=== PATIENT | female | born 2000 | race Caucasian/White ===

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

== ENCOUNTER 2024-02-16 08:27 | Emergency (ER) | payer BC, MEDICAID, OTHER ==
[2024-02-16] MEDS: Acetaminophen 500 MG Tab PO ONE (09:00)
[2024-02-16] MEDS: traMADol 50 MG Tab PO STA (09:00)
[2024-02-16] MEDS: Ibuprofen 800 MG Tab PO STA (09:00)
[2024-02-16 09:10] LABS: APPEARANCE,URINE SLT CLOUDY; BILIRUBIN,URINE NEGATIVE (NEGATIVE); COLOR,URINE YELLOW; GLUCOSE,URINE NEGATIVE (NEGATIVE); KETONES,URINE NEGATIVE (NEGATIVE); LEUKOCYTE ESTERASE,URINE LARGE (NEGATIVE); NITRITE,URINE NEGATIVE (NEGATIVE); OCCULT BLOOD,URINE LARGE (NEGATIVE); PROTEIN,URINE NEGATIVE (NEGATIVE); UROBILINOGEN,URINE 0.2 EU/dL (<2.0)
[2024-02-16 09:32] LABS: BACTERIA,URINE 1+ (NEGATIVE); EPITHELIAL CELLS,URINE MODERATE (NONE-FEW); RBC,URINE NONE SEEN (0-2/HPF)
[2024-02-16 09:33] LABS: MUCUS,URINE LIGHT (NONE-MOD)
== END 2024-02-16 10:51 | disposition home or self-care (01) ==
LOC: MW.ED 08:27
DX: N30.01 Acute cystitis with hematuria (principal); Z97.5 Presence of (intrauterine) contraceptive device; Z75.8 Other problems related to medical facilities and other health care
CPT/HCPCS: 76830; 81001; 81025; 87086; 99284; A9270; 99283

== ENCOUNTER 2024-09-14 17:10 | Emergency (ER) | payer SELFPAY ==
[2024-09-14] MEDS: Sodium Chloride 0.9% 1,000 ML IV ONE ×2 (18:11→19:30)
[2024-09-14] MEDS: Ondansetron 4 MG/2 ML SDV IVPUSH ONE (18:11)
[2024-09-14 18:20] LABS: BASOPHILS ABSOLUTE AUTO 0.13 K/uL (0.00-0.20); BASOPHILS PERCENT AUTO 0.4 % (0.0-1.0); HEMATOCRIT 40.6 % (37.0-47.0); HEMOGLOBIN 14.5 g/dL (12.0-16.0); IMMATURE GRAN ABSOLUTE AUTO 0.16 K/uL (0.00-0.05); IMMATURE GRAN PERCENT AUTO 0.5 % (0.0-0.4); LYMPHOCYTES ABSOLUTE AUTO 0.97 K/uL (1.00-4.80); LYMPHOCYTES PERCENT AUTO 3.2 % (24.0-44.0); MEAN CORPUSCULAR HEMOGLOBIN 31.9 pg (28.0-32.0); MEAN CORPUSCULAR HGB CONC 35.7 g/dL (32.0-36.0); MEAN CORPUSCULAR VOLUME 89.2 fL (83.0-99.0); NEUTROPHILS ABSOLUTE AUTO 27.09 K/uL (1.80-7.70); NEUTROPHILS PERCENT AUTO 90.9 % (41.0-71.0); PLATELET COUNT,PLT 351 K/uL (150-400); RED BLOOD CELL COUNT 4.55 M/uL (4.10-5.30); WHITE BLOOD CELL COUNT,WBC 29.85 K/uL (3.9-11.3)
[2024-09-14 18:41] LABS: A/G RATIO 1.4 (0.9-1.6); ALBUMIN 4.8 g/dL (3.4-5.0); BILIRUBIN TOTAL 0.7 mg/dL (0.2-1.0); CALCIUM 9.9 mg/dL (8.5-10.1); CARBON DIOXIDE,CO2 19.1 mmol/L (21.0-32.0); CREATININE 0.9 mg/dL (0.6-1.0); EST CRCL DRUG DOSING (CG) 84.67 mL/min; MAGNESIUM 1.7 mg/dL (1.8-2.4); POTASSIUM,K 3.6 mmol/L (3.5-5.1); PROTEIN TOTAL,TP 8.2 g/dL (6.4-8.2)
[2024-09-14] MEDS: Iopamidol 755 Mg/ML 100 ML Bottle IVPUSH ONE (19:02)
[2024-09-14] MEDS: Ketorolac 30 MG/ML SDV IVPUSH ONE (19:28)
[2024-09-14 19:46] LABS: LACTIC ACID 3.2 mmol/L (0.4-2.0)
[2024-09-14 20:38] LABS: APPEARANCE,URINE HAZY; COLOR,URINE YELLOW
[2024-09-14 20:39] LABS: BILIRUBIN,URINE NEGATIVE (NEGATIVE); GLUCOSE,URINE NEGATIVE (NEGATIVE); LEUKOCYTE ESTERASE,URINE NEGATIVE (NEGATIVE); NITRITE,URINE NEGATIVE (NEGATIVE); OCCULT BLOOD,URINE SMALL (NEGATIVE); PROTEIN,URINE TRACE mg/dL (NEGATIVE); UROBILINOGEN,URINE 0.2 EU/dL (<2.0)
[2024-09-14 20:40] LABS: KETONES,URINE 80 mg/dL (NEGATIVE)
[2024-09-14 20:41] LABS: BACTERIA,URINE FEW (NEGATIVE); EPITHELIAL CELLS,URINE FEW (NONE-FEW); WBC,URINE 0-2 (0-5/HPF)
[2024-09-14 21:01] LABS: LACTIC ACID 1.3 mmol/L (0.4-2.0)
== END 2024-09-14 21:35 | disposition home or self-care (01) ==
LOC: MW.ED 17:10
DX: K29.70 Gastritis, unspecified, without bleeding (principal); E86.0 Dehydration; D72.829 Elevated white blood cell count, unspecified; Z75.8 Other problems related to medical facilities and other health care; Z79.899 Other long term (current) drug therapy
CPT/HCPCS: 36415; 74177; 80053; 81001; 81025; 83605; 83690; 83735; 85025; 87040; 96361; 96374; 96375; 99284; J1885; J2405; J7030; Q9967